=== PATIENT | female | born 2000 | race Caucasian/White ===

== ENCOUNTER 2021-04-06 11:10 | Emergency (ER) | payer BC, MEDICAID, SELFPAY ==
[2021-04-06 11:30] VITALS: BP 127/89; PULSE 105; RESP 16; TEMP 36.6; O2SAT 98
--- NOTE | 2021-04-06 12:17 | ECG_ITS ---
Measurements Intervals [place] Rate: 92 P: 47 [place]: 139 QRS: 80 QRSD: 76 T: 39 QT: 339 QTc: 420 Interpretive Statements SINUS RHYTHM MINIMAL Q WAVES- INFERIOR LEADS BASELINE ARTIFACT- II, III, AVL, AVF BORDERLINE ECG Electronically Signed On 04-09-2021 8:56:13 CDT by Rico Jett D.O.
--- NOTE | 2021-04-06 12:33 | ED.CHESTPAIN ---
HPI - Chest Pain General Chief Complaint: Chest Pain Stated Complaint: Chest pain, SOB Time Seen by Provider: 04/06/21 11:30 Source: patient Mode of arrival: ambulatory Limitations: no limitations History of Present Illness HPI narrative: Patient comes in complaining she has had chest wall pain in mid chest, over sternum. Pain has been mild and a sharp pain, increasing with movement of her arms. It is made more severe with deep breathing. This has been ongoing since 8am this morning. complaint: chest pain Onset (ago): hour(s) Timing of current episode: constant Onset: during rest Pain location: parasternal Severity: mild Quality: sharp Relieving factors: rest Exacerbating factors: exertion Treatment prior to arrival: none Risk Factors Coronary artery disease risk factors: none Related Data Home Medications Medication Instructions Recorded Confirmed [id number] fum-folic ac-om3 1 pkg PO DAILY 04/06/21 04/06/21 [Daily ] Allergies Allergy/AdvReac Type Severity Reaction Status Date / Time cephalexin [From Keflex] Allergy Unknown Verified 04/06/21 11:58 clonazepam [From Klonopin] Allergy Unknown Verified 04/06/21 11:58 ondansetron [From Zofran] Allergy Unknown Verified 04/06/21 11:58 Penicillins Allergy Unknown Verified 04/06/21 11:58 Review of Systems Constitutional: Constitutional: Reports no additional constitutional complaints Eyes: Eyes: Reports no additional eye complaints ENT: Reports system reviewed and no additional complaints, except as documented Cardiovascular: Cardiovascular: Reports no additional cardiovascular complaints Respiratory: Respiratory: Reports no additional respiratory complaints Gastrointestinal: Gastrointestinal: Reports no additional gastrointestinal complaints Genitourinary: Genitourinary: Reports no additional female genitourinary complaints Musculoskeletal: Musculoskeletal: Reports no additional musculoskeletal complaints Integumentary/Breasts: Skin/Breast: Reports system reviewed and no additional complaints, except as docu Neurologic: Reports system reviewed and no additional complaints, except as documented Psychiatric: Psychiatric: Reports no additional psychiatric complaints Endocrine: Endocrine: Reports no additional endocrine complaints Hematologic/Lymphatic: Hematologic/Lymphatic: Reports no additional hematologic/lymphatic complaints Allergic/Immunologic: Allergic/Immunologic: Reports no additional allergic/immunologic complaints PMFSH Past Medical History Medical History Cleft lip Mitral valve prolapse SVT (supraventricular tachycardia) Surgical History Surgical History deliv NOS-unsp H/O cleft lip repair Family History Family History Father Diabetes mellitus Mother Heart disease Social History Social History (Updated 04/06/21 @ 13:35 by Ismael Patel MD) Smoking status: Never smoker Substance use: never Living arrangements: with family Gender identity (if verbalized by the patient): Female Sexual Orientation (if Verbalized by the Patient): Straight or Heterosexual Exam Const: General: cooperative, healthy appearing and comfortable Nutritional Appearance: average body habitus and well nourished Orientation/consciousness: oriented to person Limitations: no limitations HENMT: Head: normal to inspection Ears: hearing grossly normal bilaterally General nose exam: Normal external nose present Face and sinus: normal facial exam Mouth: Yes Normal oral and palatal mucosa present and Yes moist mucous membranes Teeth and gingiva: dentition normal Throat: posterior oropharynx normal Eyes: General: appearance normal, both eyes and all related structures Eyelids: eyelids normal Conjunctivae: conjunctivae normal Neck: Neck: normal visual inspection [place]
[2021-04-06 13:09] VITALS: BP 106/67; PULSE 100; O2SAT 99
[2021-04-06 13:18] LABS: D Dimer 0.19 mg/L (0.19-0.50)
[2021-04-06 13:25] VITALS: BP 108/72; PULSE 116; RESP 20; O2SAT 99
== END 2021-04-06 13:30 | disposition home or self-care (01) ==
PROVIDERS: Emergency Provider Emergency Medicine
DX: R07.89 Other chest pain (principal)
CPT/HCPCS: 36415; 85380; 93005; 99282; 99283

== ENCOUNTER 2021-04-20 12:26 | Emergency (ER) | payer BC, MEDICAID, SELFPAY ==
[2021-04-20 12:44] VITALS: BP 110/83; PULSE 99; RESP 20; TEMP 37.1; O2SAT 97
[2021-04-20] MEDS: ONDANSETRON INJ 4 MG/2 ML VIAL IV PUSH (13:16)
[2021-04-20] MEDS: SODIUM CHLORIDE 0.9% IV 1,000 ML 999 ML IV CONT (13:16)
[2021-04-20 13:20] LABS: Add Urine Microscopic? YES; Appearance Urine Clear (Clear); Bilirubin Urine Negative (Negative); Blood Urine Negative (Negative); Color Urine Light Yellow (Yellow); Glucose Urine UA Negative (Negative); Ketones Urine 3+ (Negative); Leukocyte Esterase Ur Trace (Negative); Nitrate Urine Negative (Negative); Protein Urine Negative (Negative); Urobilinogen Urine 0.2 mg/dL (0.2-1.0); pH Urine 6.5 (5.0-8.0)
[2021-04-20 13:20] LABS: Hematocrit 41.6 % (35.0-49.0); Hemoglobin 14.2 g/dL (12.0-15.0); Mean Corpuscular HGB Conc 34.1 g/dL (32.0-36.0); Mean Corpuscular Hemoglobin 29.5 pg (27.0-31.0); Mean Corpuscular Volume 86.3 fL (78.0-102.0); Mean Platelet Volume 10.7 fl (9.2-11.8); Platelet Count Result 240 K/mm3 (150-420); Red Blood Count 4.82 M/mm3 (4.20-5.40); Red Cell Distribution Width 11.9 % (11.6-14.4); White Blood Count 8.7 K/mm3 (4.8-10.8)
[2021-04-20 13:24] LABS: Bacteria Urine 1+ /hpf; RBC Urine None seen /hpf (0-2); Squamous Epithelial Cell Urine Moderate /hpf (Few); WBC Urine 0-3 /hpf (0-3)
[2021-04-20 13:36] LABS: Alanine Aminotransferase 19 U/L (14-59); Albumin Level 4.2 g/dL (3.4-5.0); Alkaline Phosphatase 83 U/L (46-116); Anion Gap 11 mmol/L (8-16); Aspartate Amino Transferase 12 U/L (15-37); Bilirubin,Total 0.3 mg/dL (0.00-1.00); Blood Urea Nitrogen 6 mg/dL (7-18); Calcium 9.4 mg/dL (8.5-10.1); Carbon Dioxide 25 mmol/L (21-32); Chloride 102 mmol/L (98-108); Estimated CRCL calculation 80 ml/min; Estimated Glomerular Filt Rate > 60; Glucose 113 mg/dL (70-99); Magnesium 1.7 mg/dL (1.8-2.4); Osmolality Calculated 284 mOsm/kg (285-295); Potassium 3.6 mmol/L (3.5-5.1); Sodium 138 mmol/L (136-145); Total Protein 8.2 g/dL (6.4-8.2)
--- NOTE | 2021-04-20 13:46 | ED.NAVMDI ---
HPI - Nausea/Vomiting/Diarrhea General Chief complaint: Nausea/Vomiting/Diarrhea Stated complaint: vomiting Source: patient and family Mode of arrival: ambulatory Limitations: no limitations History of Present Illness HPI Narrative: this is a 20-year-old female with history of 7 weeks started having nausea with some vomiting last 1 to 2 days called her route aide and told her to present to the emergency department. Otherwise there is no fever chills has had some mild diarrhea with some off and on crampy abdominal pain with some recent ultrasound performed which was normal approximately 3 days ago at her GYNs office. Currently there is no dysuria no flank pain, no hematuria no vaginal bleed no chest pain no shortness of breath. MD elicited complaint: nausea and vomiting Onset (ago): day(s) Description of vomiting: watery Associated nausea: Yes Associated abdominal pain: No Severity: mild Related Data Home Medications Medication Instructions Recorded Confirmed [id number] fum-folic ac-om3 1 pkg PO DAILY 04/06/21 04/20/21 [Daily ] Allergies Allergy/AdvReac Type Severity Reaction Status Date / Time cephalexin [From Keflex] Allergy Swelling Verified 04/20/21 12:58 of Lip/Tongue/Throat clonazepam [From Klonopin] Allergy Unknown Verified 04/20/21 12:58 latex Allergy Rash Verified 04/20/21 12:58 Penicillins Allergy Anaphylactic Verified 04/20/21 12:58 Shock piperacillin [From Zosyn] Allergy Gastrointestinal Verified 04/20/21 12:58 Upset tazobactam [From Zosyn] Allergy Gastrointestinal Verified 04/20/21 12:58 Upset Review of Systems Review of Systems: All systems reviewed & are unremarkable except as noted in HPI and below PMFSH Past Medical History Medical History Cleft lip Mitral valve prolapse SVT (supraventricular tachycardia) Surgical History Surgical History deliv NOS-unsp H/O cleft lip repair Family History Family History Father Diabetes mellitus Mother Heart disease Social History Social History Smoking status: Never smoker Substance use: never Gender identity (if verbalized by the patient): Female Exam Const: General: no acute distress and alert Orientation/consciousness: patient oriented x3 HENMT: Head: normal to inspection Eyes: Pupils: Equal, round and reactive pupils present EOM: EOMs intact bilaterally Neck: Neck: normal visual inspection Chest: Chest palpation & inspection: normal inspection of the chest Resp: Effort & Inspection: normal respiratory effort Auscultation: clear to auscultation bilaterally Cardio: Rate: regular rate Rhythm: regular rhythm GI: GI Palp: Yes Soft to palpation : General: Yes no CVA tenderness Urinary Catheter: Urinary Catheter: patent and draining Back/Spine/Pelvis: Back: no CVA tenderness Skin: General skin exam: normal color Rashes: no rashes Extrem: General: normal to inspection and no pedal edema Psych: Appearance: grossly normal Mental Status: mental status grossly normal Affect: normal affect Course Course Emergency Course: Patient received IV fluids and IV Zofran, after re-evaluation patient feels much better, reviewed labs with patient and urinalysis which showed patient having urinary tract infection will treat accordingly. Vital Signs Vital signs: Vital Signs Temperature 37.1 C 04/20/21 12:44 Pulse Rate 99 04/20/21 12:44 Respiratory Rate 20 04/20/21 12:44 Blood Pressure 110/83 04/20/21 12:44 Pulse Oximetry 97 04/20/21 12:44 Temperature 37.1 C 04/20/21 12:44 Pulse Rate 99 04/20/21 12:44 Respiratory Rate 20 04/20/21 12:44 Blood Pressure 110/83 04/20/21 12:44 Pulse Oximetry 97 04/20/21 12:44
[2021-04-20 14:30] VITALS: BP 107/76; PULSE 83; RESP 20; TEMP 36.7; O2SAT 99
== END 2021-04-20 14:36 | disposition home or self-care (01) ==
PROVIDERS: Emergency Provider Emergency Medicine
DX: R11.0 Nausea (principal); Z33.1 Pregnant state, incidental; N30.00 Acute cystitis without hematuria
CPT/HCPCS: 36415; 80053; 81001; 83735; 85027; 96361; 96374; 99283; 99284; J2405; J7030

== ENCOUNTER → 2021-04-23 14:42 | Outpatient (CLI) | payer BC, MEDICAID, SELFPAY ==
--- NOTE | ~2021-04-23 | US_ITS ---
EXAMINATION: US OB transvaginal EXAM DATE: 04/23/2021 15:09 INDICATION: Spotting complicating , first trimester. 1st trimester. TECHNIQUE: Pelvic obstetrical transvaginal sonogram was performed by a technologist. There are mult iple grayscale and Doppler images available for interpretation. There are no earlier studies of this gestation for comparison. FINDINGS: Uterus measures 7.4 x 6.0 x 6.5 cm. There is intrauterine gestation sac. pole with heart rate confirmed at 154 beats per minute. The 1.4 cm crown-rump length corresponds to estimated gestational age by ultrasound of 7 weeks 4 days, estimated date of confinement 12/06/2021. Yolk sac is identified. There is no sonographic evidence of subchorionic hemorrhage. Ovaries are morphologic ally normal. IMPRESSION: Early live intrauterine gestation. Reviewed, dictated and finalized at location A.
== END ==
PROVIDERS: Visit Provider Nurse Practitioner
DX: O26.851 Spotting complicating pregnancy, first trimester (principal); Z3A.00 Weeks of gestation of pregnancy not specified
CPT/HCPCS: 76817

== ENCOUNTER 2021-04-25 11:44 | Emergency (ER) | payer BC, MEDICAID, SELFPAY ==
[2021-04-25 12:15] VITALS: BP 119/74; PULSE 96; RESP 20; TEMP 36.7; O2SAT 98
[2021-04-25 12:35] LABS: Basophils Absolute Auto 0.02 K/mm3 (0.00-0.10); Basophils Percent Auto 0.3 % (0.0-1.0); Eosinophils Absolute Auto 0.03 K/mm3 (0.02-0.50); Eosinophils Percent Auto 0.4 % (1.0-6.0); Hematocrit 38.9 % (35.0-49.0); Immature Granulocyte Absolute 0.02 K/mm3 (0.00-0.00); Immature Granulocyte Percent A 0.3 % (0.0-0.0); Lymphocytes Absolute Auto 1.52 K/mm3 (1.10-4.50); Lymphocytes Percent Auto 20.3 % (18.0-42.0); Mean Corpuscular HGB Conc 33.4 g/dL (32.0-36.0); Mean Corpuscular Hemoglobin 29.1 pg (27.0-31.0); Mean Platelet Volume 10.7 fl (9.2-11.8); Monocytes Absolute Auto 0.57 K/mm3 (0.10-0.90); Monocytes Percent Auto 7.6 % (2.0-11.0); Neutrophils Absolute Auto 5.3 K/mm3 (1.7-7.2); Neutrophils Percent Auto 71.1 % (50.0-70.0); Platelet Count Result 190 K/mm3 (150-420); Red Blood Count 4.47 M/mm3 (4.20-5.40); Red Cell Distribution Width 11.9 % (11.6-14.4); White Blood Count 7.5 K/mm3 (4.8-10.8)
[2021-04-25] MEDS: SODIUM CHLORIDE 0.9% IV 1,000 ML 999 ML IV CONT (12:38)
[2021-04-25] MEDS: ONDANSETRON INJ 4 MG/2 ML VIAL IV PUSH (12:39)
[2021-04-25 12:46] LABS: Alanine Aminotransferase 18 U/L (14-59); Albumin Level 3.7 g/dL (3.4-5.0); Alkaline Phosphatase 73 U/L (46-116); Anion Gap 11 mmol/L (8-16); Aspartate Amino Transferase 11 U/L (15-37); Bilirubin,Total 0.2 mg/dL (0.00-1.00); Blood Urea Nitrogen 5 mg/dL (7-18); Carbon Dioxide 24 mmol/L (21-32); Chloride 104 mmol/L (98-108); Estimated CRCL calculation 95 ml/min; Estimated Glomerular Filt Rate > 60; Glucose 103 mg/dL (70-99); Osmolality Calculated 285 mOsm/kg (285-295); Potassium 3.6 mmol/L (3.5-5.1); Sodium 139 mmol/L (136-145); Total Protein 7.5 g/dL (6.4-8.2)
--- NOTE | 2021-04-25 12:50 | ED.NAVMDI ---
HPI - Nausea/Vomiting/Diarrhea General Chief complaint: Unspecified Stated complaint: Dr Negron is sending for IV fluids Source: patient Mode of arrival: ambulatory Limitations: no limitations History of Present Illness HPI Narrative: this is a 20-year-old female that presents with nausea and vomiting has some history of nausea vomiting secondary to , currently no abdominal pain no diarrhea constipation no fever chills has spoken to her zipper slide attacher and was advised the emergency department to receive IV fluids. MD elicited complaint: nausea and vomiting Onset (ago): day(s) Description of vomiting: watery Associated nausea: Yes Associated abdominal pain: No Location of pain: none Related Data Home Medications Medication Instructions Recorded Confirmed [id number] fum-folic ac-om3 1 pkg PO DAILY 04/06/21 04/20/21 [Daily ] Allergies Allergy/AdvReac Type Severity Reaction Status Date / Time cephalexin [From Keflex] Allergy Swelling Verified 04/25/21 12:20 of Lip/Tongue/Throat clonazepam [From Klonopin] Allergy Unknown Verified 04/25/21 12:20 latex Allergy Rash Verified 04/25/21 12:20 Penicillins Allergy Anaphylactic Verified 04/25/21 12:20 Shock piperacillin [From Zosyn] Allergy Gastrointestinal Verified 04/25/21 12:20 Upset tazobactam [From Zosyn] Allergy Gastrointestinal Verified 04/25/21 12:20 Upset Review of Systems Review of Systems: All systems reviewed & are unremarkable except as noted in HPI and below PMFSH Past Medical History Medical History Cleft lip Mitral valve prolapse SVT (supraventricular tachycardia) Surgical History Surgical History deliv NOS-unsp H/O cleft lip repair Family History Family History Father Diabetes mellitus Mother Heart disease Social History Social History Smoking status: Never smoker Substance use: never Gender identity (if verbalized by the patient): Female Exam Const: General: no acute distress HENMT: Head: normal to inspection Eyes: Pupils: Equal, round and reactive pupils present Neck: Neck: normal visual inspection, no lymphadenopathy and no meningeal signs Resp: Effort & Inspection: normal respiratory effort Cardio: Rate: regular rate Rhythm: regular rhythm GI: GI Palp: Yes Soft to palpation : General: Yes no CVA tenderness Urinary Catheter: Urinary Catheter: patent and draining Back/Spine/Pelvis: Back: no CVA tenderness Neuro: General: patient oriented x3, moves all extremities, no meningeal signs and no focal motor deficits Extrem: General: normal to inspection and no pedal edema Psych: Mental Status: mental status grossly normal Affect: normal affect Attitude: cooperative Course Course Emergency Course: Reassessment of patient more comfortable after receiving IV fluids and IV Zofran reviewed labs with patient and advised to follow-up with her zipper slide attacher. Vital Signs Vital signs: Vital Signs Temperature 36.7 C 04/25/21 12:15 Pulse Rate 96 04/25/21 12:15 Respiratory Rate 20 04/25/21 12:15 Blood Pressure 119/74 04/25/21 12:15 Pulse Oximetry 98 04/25/21 12:15 Temperature 36.7 C 04/25/21 12:15 Pulse Rate 96 04/25/21 12:15 Respiratory Rate 20 04/25/21 12:15 Blood Pressure 119/74 04/25/21 12:15 Pulse Oximetry 98 04/25/21 12:15 MDM - Nausea/Vomiting/Diarrhea Lab Data Result diagrams: 04/25/21 12:27 04/25/21 12:27 Labs: Lab Results 04/25/21 04/25/21 Range/Units 12:27 12:27 WBC 7.5 (4.8-10.8) K/mm3 RBC 4.47 (4.20-5.40) M/mm3 Hgb 13.0 (12.0-15.0) g/dL Hct 38.9 (35.0-49.0) % MCV 87.0 (78.0-102.0) fL MCH 29.1 (27.0-31.0) pg MCHC 33.4 (32.
[2021-04-25 13:36] VITALS: BP 99/66; PULSE 86; RESP 20; O2SAT 100
--- NOTE | 2021-05-14 13:59 | PC.NURSE ---
04/25/21 NS 1000mls infused at 1400
== END 2021-04-25 13:39 | disposition home or self-care (01) ==
PROVIDERS: Emergency Provider Emergency Medicine; PCP Obstetrics & Gynecology
DX: R11.2 Nausea with vomiting, unspecified (principal); Z33.1 Pregnant state, incidental
CPT/HCPCS: 36415; 80053; 85025; 96361; 96374; 99283; 99284; J2405; J7030

== ENCOUNTER 2021-05-29 12:07 | Outpatient (CLI) | payer MEDICAID, SELFPAY ==
--- NOTE | ~2021-05-29 | US_ITS ---
EXAMINATION: US OB <= 14 weeks fetus DATE: 05/29/2021 12:42 INDICATION: Subchorionic hematoma and spotting during first trimester . Prior miscarriage. TECHNIQUE: Real-time pelvic ultrasound utilizing both a transvaginal and transabdominal probe was pe rformed. The interpreting radiologist was not present for the study. COMPARISON: None. FINDINGS: The uterus measures 15.0 x 4.9 x 9.6 cm. There is an intrauterine gestational sac. A yolk sac and fe jaun pole are identified. The crown rump length measures 2.9 cm, which is concordant within 3 days and well within the confidence interval of the previously estimated gestational age of 12 weeks and 5 da ys based upon earliest ultrasound performed at this institution on 04/23/2021. heart motion is i dentified measuring 147 beats per minute (bpm) by M-mode Doppler. There is a 4.2 x 4.0 x 2.5 cm ovoid hypoechoic region anterior to the caudal aspect of the gestational sac near the lower uterine segmen t. Differential would include uterine fibroid, contraction or less likely a subchorionic hematoma. The right ovary measures 2.4 x 2.1 x 2.2 cm. The left ovary measures 2.7 x 2.7 x 1.8 cm. Vascular lexy w identified at both ovaries on color Doppler. There is no free fluid in the pelvis. IMPRESSION: 1. Single living fetus with heart rate of 147 bpm. 2. [place]-rump length of 2.9 cm which is concordant with previously estimated gestational age by ultra sound of 12 weeks 5 day(s) with ultrasound estimated date of delivery (JA) of 12/06/2021 spinal ultras ound performed on 04/23/2021. 3. 4.2 x 4.0 x 2.5 cm hypoechoic region anterior to the gestational sac with differential including u terine fibroid, contraction or less likely subchorionic hematoma. Reviewed, dictated and finalized at location A. IMPRESSION: 1. Single living fetus with heart rate of 147 bpm. 2. [place]-rump length of 2.9 cm which is concordant with previously estimated ge stational age by ultrasound of 12 weeks 5 day(s) with ultrasound estimated date of delivery (JA) of 12/06/2021 spinal ultrasound performed on 04/23/2021. 3. 4.2 x 4.0 x 2.5 cm hypoechoic region anterior to the gestational sac with di fferential including uterine fibroid, contraction or less likely subchorionic h ematoma.
== END 2021-05-29 12:08 | disposition home or self-care (01) ==
PROVIDERS: Visit Provider Obstetrics & Gynecology Gynecology
DX: O36.8910 Maternal care for other specified fetal problems, first trimester, not applicable or unspecified (principal); O26.21 Pregnancy care for patient with recurrent pregnancy loss, first trimester; O26.859 Spotting complicating pregnancy, unspecified trimester; Z3A.12 12 weeks gestation of pregnancy
CPT/HCPCS: 76801

== ENCOUNTER 2021-06-01 09:56 | Outpatient (CLI) | payer BC, MEDICAID, SELFPAY ==
[2021-06-01 10:10] LABS: Basophils Absolute Auto 0.02 K/mm3 (0.00-0.10); Basophils Percent Auto 0.2 % (0.0-1.0); Eosinophils Absolute Auto 0.15 K/mm3 (0.02-0.50); Eosinophils Percent Auto 1.8 % (1.0-6.0); Hematocrit 39.7 % (35.0-49.0); Hemoglobin 13.2 g/dL (12.0-15.0); Immature Granulocyte Absolute 0.02 K/mm3 (0.00-0.00); Immature Granulocyte Percent A 0.2 % (0.0-0.0); Lymphocytes Absolute Auto 2.08 K/mm3 (1.10-4.50); Lymphocytes Percent Auto 24.4 % (18.0-42.0); Mean Corpuscular HGB Conc 33.2 g/dL (32.0-36.0); Mean Corpuscular Hemoglobin 29.1 pg (27.0-31.0); Mean Corpuscular Volume 87.6 fL (78.0-102.0); Mean Platelet Volume 10.2 fl (9.2-11.8); Monocytes Absolute Auto 0.81 K/mm3 (0.10-0.90); Monocytes Percent Auto 9.5 % (2.0-11.0); Neutrophils Absolute Auto 5.4 K/mm3 (1.7-7.2); Neutrophils Percent Auto 63.9 % (50.0-70.0); Platelet Count Result 212 K/mm3 (150-420); Red Blood Count 4.53 M/mm3 (4.20-5.40); Red Cell Distribution Width 12.5 % (11.6-14.4); White Blood Count 8.5 K/mm3 (4.8-10.8)
[2021-06-01 10:26] LABS: Hemoglobin A1C 5.1 % (<5.7)
[2021-06-01 10:58] LABS: HIV 1 P24 AG Negative (Negative); HIV 1/2 AB Negative (Negative)
[2021-06-04 13:12] LABS: Vitamin D 25 Hydroxy 16 ng/mL (30-100)
[2021-06-05 12:05] LABS: RPR Screen Non-Reactive (Non-Reactive)
[2021-06-05 18:23] LABS: Hepatitis B Surface Antigen Nonreactive (Nonreactive); Hepatitis C Signal to Cutoff 0.01 ratio (<1.00); Hepatitis C Virus Antibody Nonreactive (Nonreactive)
[2021-06-05 18:29] LABS: Rubella IgG Antibody 7.97 Index
== END 2021-06-01 09:57 | disposition home or self-care (01) ==
LOC: CHSLAB 09:58
PROVIDERS: Visit Provider Obstetrics & Gynecology Gynecology
DX: Z36.9 Encounter for antenatal screening, unspecified (principal)
CPT/HCPCS: 36415; 82306; 83036; 85025; 86592; 86703; 86762; 86850; 86900; 86901

== ENCOUNTER 2021-06-01 18:39 | Emergency (ER) | payer BC, MEDICAID, SELFPAY ==
[2021-06-01 19:02] VITALS: BP 113/80; PULSE 105; RESP 20; TEMP 36.7; O2SAT 98
[2021-06-01] MEDS: ONDANSETRON INJ 4 MG/2 ML VIAL IV PUSH (19:32)
[2021-06-01] MEDS: SODIUM CHLORIDE 0.9% IV 1,000 ML 999 ML IV CONT (19:33)
[2021-06-01 19:46] LABS: Add Urine Microscopic? YES; Appearance Urine Clear (Clear); Bilirubin Urine 1+ (Negative); Blood Urine Negative (Negative); Color Urine Yellow (Yellow); Glucose Urine UA Negative (Negative); Ketones Urine 2+ (Negative); Leukocyte Esterase Ur Trace (Negative); Nitrate Urine Negative (Negative); Protein Urine Negative (Negative); Specific Grav Ur >= 1.030 (1.010-1.020); Urobilinogen Urine 0.2 mg/dL (0.2-1.0)
--- NOTE | 2021-06-01 19:52 | ED.NAVMDI ---
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 The patient has a history of nausea with some episodes of vomiting throughout her early and has been on Zofran. Patient has been out of her Zofran. MD elicited complaint: nausea and vomiting Related Data Home Medications Medication Instructions Recorded Confirmed -ycgk fum-folic ac-om3 1 pkg PO DAILY 04/06/21 04/25/21 [Daily ] Allergies Allergy/AdvReac Type Severity Reaction Status Date / Time cephalexin [From Keflex] Allergy Swelling Verified 04/25/21 12:20 of Lip/Tongue/Throat clonazepam [From Klonopin] Allergy Unknown Verified 04/25/21 12:20 latex Allergy Rash Verified 04/25/21 12:20 Penicillins Allergy Anaphylactic Verified 04/25/21 12:20 Shock piperacillin [From Zosyn] Allergy Gastrointestinal Verified 04/25/21 12:20 Upset tazobactam [From Zosyn] Allergy Gastrointestinal Verified 04/25/21 12:20 Upset Review of Systems Review of Systems: All systems reviewed & are unremarkable except as noted in HPI and below PMFSH Past Medical History Medical History Cleft lip Mitral valve prolapse SVT (supraventricular tachycardia) Surgical History Surgical History deliv NOS-unsp H/O cleft lip repair Family History Family History Father Diabetes mellitus Mother Heart disease Social History Social History Smoking status: Never smoker Substance use: never Gender identity (if verbalized by the patient): Female Sexual Orientation (if Verbalized by the Patient): Straight or Heterosexual Exam Const: General: no acute distress Orientation/consciousness: patient oriented x3 HENMT: Head: normal to inspection Eyes: Pupils: Equal, round and reactive pupils present EOM: EOMs intact bilaterally Direct Ophthalmoscopy: no photophobia Neck: Neck: normal visual inspection, no lymphadenopathy and no meningeal signs Chest: Chest palpation & inspection: normal inspection of the chest Resp: Effort & Inspection: normal respiratory effort Auscultation: clear to auscultation bilaterally Cardio: Rate: regular rate Rhythm: regular rhythm GI: GI Palp: Yes Soft to palpation : General: Yes no CVA tenderness Urinary Catheter: Urinary Catheter: patent and draining Back/Spine/Pelvis: Back: no CVA tenderness Skin: General skin exam: normal color Rashes: no rashes Neuro: General: patient oriented x3 and moves all extremities Extrem: General: normal to inspection and no pedal edema Psych: Mental Status: mental status grossly normal Course Course Emergency Course: Patient received IV fluids, 4mg of IV Zofran and UA was reviewed with patient. Vital Signs Vital signs: Vital Signs Temperature 36.7 C 06/01/21 19:02 Pulse Rate 105 H 06/01/21 19:02 Respiratory Rate 20 06/01/21 19:02 Blood Pressure 113/80 06/01/21 19:02 Pulse Oximetry 98 06/01/21 19:02 Temperature 36.7 C 06/01/21 19:02 Pulse Rate 105 H 06/01/21 19:02 Respiratory Rate 20 06/01/21 19:02 Blood Pressure 113/80 06/01/21 19:02 Pulse Oximetry 98 06/01/21 19:02 MDM - Nausea/Vomiting/Diarrhea Lab Data Labs: Lab Results 06/01/21 Range/Units 19:05 Urine Color Pendi
[2021-06-01 20:21] LABS: RBC Urine None seen /hpf (0-2); Squamous Epithelial Cell Urine Many /hpf (Few); WBC Urine 0-3 /hpf (0-3)
[2021-06-01 20:22] LABS: Bacteria Urine 2+ /hpf; Mucus Urine Heavy /lpf
[2021-06-01 20:39] VITALS: PULSE 99; RESP 20; O2SAT 99
== END 2021-06-01 20:43 | disposition home or self-care (01) ==
PROVIDERS: Emergency Provider Emergency Medicine
DX: O21.9 Vomiting of pregnancy, unspecified (principal); O23.11 Infections of bladder in pregnancy, first trimester; O99.411 Diseases of the circulatory system complicating pregnancy, first trimester; I34.1 Nonrheumatic mitral (valve) prolapse; Z3A.13 13 weeks gestation of pregnancy
CPT/HCPCS: 81001; 96361; 96374; 99283; 99284; J2405; J7030

== ENCOUNTER 2021-06-14 18:02 | Emergency (ER) | payer MEDICAID, SELFPAY ==
[2021-06-14 19:10] VITALS: BP 122/90; PULSE 96; RESP 16; TEMP 36.8; O2SAT 99
--- NOTE | 2021-06-14 19:21 | ED.NAVMDI ---
HPI - Nausea/Vomiting/Diarrhea General Chief complaint: Unspecified Stated complaint: dehydrated Time Seen by Provider: 06/14/21 19:21 Source: patient Mode of arrival: ambulatory Limitations: no limitations History of Present Illness HPI Narrative: 21-year-old woman in her 15th week of (EDC December 20), comes in today complaining of dehydration. Patient states that she feels lightheaded during the daytime and that at her doctor's appointment 5 days ago her labs indicated she was dehydrated. She has had intermittent vomiting, the last episode was today. She states that she has back pain with urination and intermittent hematuria but no dysuria, fever, chills, abdominal pain, vaginal bleeding, or syncope. Patient states she has room spinning kind of dizziness that wakes her up in the morning and is associated with chest pressure. She denies drug or alcohol use and does not use caffeine. She had an ultrasound today which showed a slow heart rate. MD elicited complaint: vomiting Pertinent past history: other ( Symptoms started at onset of ) Onset (ago): week(s) Severity: moderate Exacerbating factors: eating and movement Relieving factors: none Associated symptoms: nausea/vomiting Treatment prior to arrival: other ( Zofran) Related Data Home Medications Medication Instructions Recorded Confirmed -gizb fum-folic ac-om3 1 pkg PO DAILY 04/06/21 04/25/21 [Daily ] Allergies Allergy/AdvReac Type Severity Reaction Status Date / Time cephalexin [From Keflex] Allergy Swelling Verified 06/14/21 19:10 of Lip/Tongue/Throat clonazepam [From Klonopin] Allergy Unknown Verified 06/14/21 19:10 latex Allergy Rash Verified 06/14/21 19:10 Penicillins Allergy Anaphylactic Verified 06/14/21 19:10 Shock piperacillin [From Zosyn] Allergy Gastrointestinal Verified 06/14/21 19:10 Upset tazobactam [From Zosyn] Allergy Gastrointestinal Verified 06/14/21 19:10 Upset Review of Systems Review of Systems: All systems reviewed & are unremarkable except as noted in HPI and below Constitutional: Constitutional: Denies chills, Reports fatigue and Denies fever(s) Eyes: Eyes: Denies change in vision and Denies photophobia ENT: Denies nasal congestion and Denies sore throat Cardiovascular: Cardiovascular: Reports chest pain, Reports rapid heart rate and Denies radiating jaw, neck or arm pain Respiratory: Respiratory: Denies cough, Denies dyspnea and Denies wheezing Gastrointestinal: Gastrointestinal: Denies abdominal pain, Denies diarrhea, Reports nausea and Reports vomiting Genitourinary: Genitourinary: Reports hematuria, Denies nocturia and Denies dysuria Musculoskeletal: Musculoskeletal: Reports back pain ( with urination), Denies arthralgias and Denies joint swelling Integumentary/Breasts: Skin/Breast: Denies pruritus, Denies erythema and Denies rash Neurologic: Reports vertigo, Reports dizziness, Denies syncope, Denies focal weakness and Denies numbness Hematologic/Lymphatic: Hematologic/Lymphatic: Denies easy bleeding and Denies easy bruising PMFSH Past Medical History Medical History Cleft lip Mitral valve prolapse SVT (supraventricular tachycardia) Surgical History Surgical History deliv NOS-unsp H/O cleft lip repair Family History Family History Father Diabetes mellitus Mother Heart disease Social History Social History Smoking status: Never smoker Substance use: never Gender identity (if verbalized by the patient): Female Sexual Orientation (if Verbalized by the Patient): Straight or Heterosexual Exam Const: General: healthy appearing, no acute distress and alert Orientation/consciousness: patient mireya
--- NOTE | 2021-06-14 19:27 | ECG_ITS ---
Measurements Intervals [place] Rate: 97 P: 33 [place]: 154 QRS: 54 QRSD: 82 T: 4 QT: 334 QTc: 425 Interpretive Statements SINUS RHYTHM INCOMPLETE RIGHT BUNDLE BRANCH BLOCK BORDERLINE T WAVE ABNORMALITY- ANT/INF LEADS BASELINE ARTIFACT- II, III, AVR, AVL, AVF, V1-V2 BORDERLINE ECG Electronically Signed On 06-17-2021 7:41:42 CDT by Rico Jett D.O.
--- NOTE | 2021-06-14 19:45 | PC.NURSE ---
Attempted heart tones. Unable to obtain. Pt had US today. Dr. Wong notified.
[2021-06-14 19:48] LABS: Basophils Absolute Auto 0.02 K/mm3 (0.00-0.10); Basophils Percent Auto 0.2 % (0.0-1.0); Eosinophils Absolute Auto 0.04 K/mm3 (0.02-0.50); Eosinophils Percent Auto 0.4 % (1.0-6.0); Hematocrit 36.6 % (35.0-49.0); Hemoglobin 12.4 g/dL (12.0-15.0); Immature Granulocyte Absolute 0.05 K/mm3 (0.00-0.00); Immature Granulocyte Percent A 0.5 % (0.0-0.0); Lymphocytes Absolute Auto 2.39 K/mm3 (1.10-4.50); Lymphocytes Percent Auto 23.3 % (18.0-42.0); Mean Corpuscular HGB Conc 33.9 g/dL (32.0-36.0); Mean Corpuscular Volume 85.5 fL (78.0-102.0); Mean Platelet Volume 10.2 fl (9.2-11.8); Monocytes Percent Auto 6.8 % (2.0-11.0); Neutrophils Absolute Auto 7.1 K/mm3 (1.7-7.2); Neutrophils Percent Auto 68.8 % (50.0-70.0); Platelet Count Result 221 K/mm3 (150-420); Red Blood Count 4.28 M/mm3 (4.20-5.40); Red Cell Distribution Width 12.6 % (11.6-14.4); White Blood Count 10.3 K/mm3 (4.8-10.8)
[2021-06-14 20:04] LABS: Alanine Aminotransferase 23 U/L (14-59); Albumin Level 3.5 g/dL (3.4-5.0); Alkaline Phosphatase 78 U/L (46-116); Anion Gap 13 mmol/L (8-16); Aspartate Amino Transferase 12 U/L (15-37); Bilirubin,Total 0.3 mg/dL (0.00-1.00); Blood Urea Nitrogen 5 mg/dL (7-18); Calcium 8.9 mg/dL (8.5-10.1); Carbon Dioxide 23 mmol/L (21-32); Chloride 102 mmol/L (98-108); Estimated CRCL calculation 98 ml/min; Estimated Glomerular Filt Rate > 60; Glucose 79 mg/dL (70-99); Magnesium 1.8 mg/dL (1.8-2.4); Osmolality Calculated 282 mOsm/kg (285-295); Potassium 3.2 mmol/L (3.5-5.1); Sodium 138 mmol/L (136-145); Total Protein 7.3 g/dL (6.4-8.2)
[2021-06-14] MEDS: SODIUM CHLORIDE 0.9% IV 1,000 ML 999 ML IV CONT ×2 (20:05→21:49)
--- NOTE | 2021-06-14 21:16 | PC.NURSE ---
UA walked to lab
[2021-06-14 21:27] LABS: Add Urine Microscopic? YES; Appearance Urine Clear (Clear); Bilirubin Urine Negative (Negative); Blood Urine Negative (Negative); Color Urine Light Yellow (Yellow); Glucose Urine UA Negative (Negative); Ketones Urine 3+ (Negative); Leukocyte Esterase Ur 1+ (Negative); Nitrate Urine Negative (Negative); Protein Urine Negative (Negative); Urobilinogen Urine 0.2 mg/dL (0.2-1.0); pH Urine 5.5 (5.0-8.0)
[2021-06-14 21:36] LABS: RBC Urine 0-2 /hpf (0-2); WBC Urine 0-3 /hpf (0-3)
[2021-06-14 21:37] LABS: Bacteria Urine Trace /hpf; Squamous Epithelial Cell Urine Few /hpf (Few)
[2021-06-14 22:40] VITALS: BP 111/73; PULSE 93; RESP 18; TEMP 36.2; O2SAT 98
== END 2021-06-14 22:44 | disposition home or self-care (01) ==
PROVIDERS: Emergency Provider Emergency Medicine
DX: R42 Dizziness and giddiness (principal); E87.6 Hypokalemia; R82.4 Acetonuria
CPT/HCPCS: 36415; 80053; 81001; 83735; 85025; 93005; 96360; 96361; 99283; J7030

== ENCOUNTER 2021-06-15 21:48 | Emergency (ER) | payer MEDICAID, SELFPAY ==
[2021-06-15 22:00] VITALS: BP 114/82; PULSE 93; RESP 20; TEMP 36.8; O2SAT 98
--- NOTE | 2021-06-15 22:44 | ED.NAVMDI ---
HPI - Nausea/Vomiting/Diarrhea General Chief complaint: Nausea/Vomiting/Diarrhea Stated complaint: nausea,vomitting Time Seen by Provider: 06/15/21 21:50 Source: patient and RN notes reviewed Mode of arrival: ambulatory Limitations: no limitations History of Present Illness MD elicited complaint: nausea and vomiting Pertinent past history: cyclical vomiting Onset (ago): day(s) (3) Description of vomiting: watery Description of diarrhea: other (none) Associated nausea: Yes Associated abdominal pain: No Location of pain: none Pain consistency: constant Severity: mild Pain scale (0-10): 0 Quality: cramping Exacerbating factors: none Relieving factors: medication and other (pt has been drinking 9-10 bottles of water daily and taking Zofran PO. ) Associated symptoms: nausea/vomiting Related Data Allergies Allergy/AdvReac Type Severity Reaction Status Date / Time cephalexin [From Keflex] Allergy Swelling Verified 06/14/21 19:10 of Lip/Tongue/Throat clonazepam [From Klonopin] Allergy Unknown Verified 06/14/21 19:10 latex Allergy Rash Verified 06/14/21 19:10 Penicillins Allergy Anaphylactic Verified 06/14/21 19:10 Shock piperacillin [From Zosyn] Allergy Gastrointestinal Verified 06/14/21 19:10 Upset tazobactam [From Zosyn] Allergy Gastrointestinal Verified 06/14/21 19:10 Upset Review of Systems Review of Systems: All systems reviewed & are unremarkable except as noted in HPI and below PMFSH Past Medical History Medical History Cleft lip Mitral valve prolapse SVT (supraventricular tachycardia) Surgical History Surgical History deliv NOS-unsp H/O cleft lip repair Family History Family History Father Diabetes mellitus Mother Heart disease Social History Social History Smoking status: Never smoker Substance use: never Gender identity (if verbalized by the patient): Female Sexual Orientation (if Verbalized by the Patient): Straight or Heterosexual Exam Const: General: no acute distress and alert Nutritional Appearance: well nourished Orientation/consciousness: patient oriented x3 HENMT: Head: normal to inspection Ears: external ears normal and TM's normal bilaterally General nose exam: Normal external nose present and Normal nares present Mouth: Yes lip normal and Yes moist mucous membranes Teeth and gingiva: dentition normal Eyes: Cornea: corneas normal Pupils: Equal, round and reactive pupils present EOM: EOMs intact bilaterally Neck: Neck: normal visual inspection and lymphadenopathy noted Chest: Chest palpation & inspection: normal inspection of the chest Resp: Effort & Inspection: normal respiratory effort Auscultation: clear to auscultation bilaterally Cardio: Rate: regular rate Rhythm: regular rhythm GI: GI Palp: Yes Soft to palpation : General: Yes no CVA tenderness Other: FHR: 150. Gravid uterus with no acute Back/Spine/Pelvis: Back: no CVA tenderness Skin: General skin exam: normal color Rashes: no rashes Neuro: General: patient oriented x3, moves all extremities, no meningeal signs, no focal motor deficits and CN's II-XI intact bilaterally Extrem: General: normal to inspection and no pedal edema Psych: Appearance: grossly normal Mental Status: mental status grossly normal Course Course Emergency Course: Pt refused the IM Phenergan. Reevaluation(s) Date: 06/15/21 Time: 22:51 Vital Signs Vital signs: Vital Signs Temperature 36.8 C 06/15/21 22:00 Pulse Rate 93 06/15/21 22:00 Respiratory Rate 20 06/15/21 22:00 Blood Pressure 114/82 06/15/21 22:00 Pulse Oximetry 98 06/15/21 22:00 Temperature 36.8 C 06/15/21 22:00 Pulse Rate 93 06/15/21 22:00 Respiratory Rate 20
[2021-06-15] MEDS: SODIUM CHLORIDE 0.9% IV 1,000 ML 999 ML IV CONT (22:58)
[2021-06-16 00:05] VITALS: BP 114/82; PULSE 93; RESP 18; TEMP 36.8; O2SAT 98
== END 2021-06-16 00:07 | disposition home or self-care (01) ==
PROVIDERS: Emergency Provider Emergency Medicine
DX: O21.0 Mild hyperemesis gravidarum (principal); Z3A.15 15 weeks gestation of pregnancy
CPT/HCPCS: 96360; 99283; J2550; J7030

== ENCOUNTER 2022-02-26 09:52 | Outpatient (CLI) | payer OTHER, SELFPAY ==
--- NOTE | 2022-02-26 11:30 | NEURO_ITS ---
Impression: # Complains of numbness of right hand. # No Carpal Tunnel Syndrome or ulnar neuropathy. # Normal needle/EMG exam. Nerve Conduction Studies Anti Sensory Summary Table Stim Site NR Peak (ms) P-T Amp (?V) Site1 Site2 Delta-P (ms) Dist (cm) Christian (m/s) Right Median Anti Sensory (2-3nd Digit) Wrist 2.8 84.4 Wrist 2-3nd Digit 2.8 14.0 50 Wrist 2.6 83.7 Wrist 2-3nd Digit 2.8 14.0 50 Right Radial Anti Sensory (Base 1st Digit) Wrist 1.8 32.8 Wrist Base 1st Digit 1.8 0.0 Right Ulnar Anti Sensory (5th Digit) Wrist 2.1 35.0 Wrist 5th Digit 2.1 14.0 67 Motor Summary Table Stim Site NR Onset (ms) O-P Amp (mV) Site1 Site2 Delta-0 (ms) Dist (cm) Christian (m/s) Right Median Motor (Abd Poll Brev) Wrist 2.6 7.8 Elbow Wrist 4.7 26.0 55 Elbow 7.3 6.3 Right Ulnar Motor (Abd Dig Minimi) Wrist 2.0 6.3 A Elbow Wrist 4.5 27.0 60 A Elbow 6.5 5.2 F Wave Studies NR F-Lat (ms) L-R F-Lat (ms) Right Median (Mrkrs) (Abd Poll Brev) 25.00 Right Ulnar (Mrkrs) (Abd Dig Min) 23.36 EMG Side Muscle Nerve Root Ins Act Fibs Amp Dur Recrt Comment Right 1stDorInt Ulnar C8-T1 Nml Nml Nml Nml Nml Right Ext Indicis Radial (Post Int) C7-8 Nml Nml Nml Nml Nml Right Ext Digitorum Radial (Post Int) C7-8 Nml Nml Nml Nml Nml Right BrachioRad Radial C5-6 Nml Nml Nml Nml Nml Right PronatorTeres Median C6-7 Nml Nml Nml Nml Nml Right Abd Poll Brev Median C8-T1 Nml Nml Nml Nml Nml MTDD
== END 2022-02-26 09:53 | disposition home or self-care (01) ==
PROVIDERS: Visit Provider Nurse Practitioner Family
DX: M25.531 Pain in right wrist (principal)
CPT/HCPCS: 95886; 95909